=== PATIENT | female | born 1950 | race Caucasian/White ===

== ENCOUNTER 2020-04-19 06:23 | Observation (INO) ==
--- NOTE | 2020-03-25 15:45 | PAT Medication Instructions ---
Medication Instructions Date of Service March 25, 2020 Home Medications multivitamin 1 tab PO QAM omega-3 fatty acids 1,000 mg capsule 1,000 mg PO QAM Vitamin B6 1 tab PO QAM citalopram 20 mg PO QPM coQ10 (ubiquinol) 200 mg PO QAM meloxicam 15 mg PO DAILY PRN vitamin N20-lekrl acid 1 tab PO QAM ASK your surgeon for instructions meloxicam 15 mg PO DAILY PRN STOP taking 2 weeks before surgery If surgery is within 2 weeks, stop taking as soon as possible. omega-3 fatty acids 1,000 mg capsule 1,000 mg PO QAM coQ10 (ubiquinol) 200 mg PO QAM DO NOT take the morning of surgery multivitamin 1 tab PO QAM Vitamin B6 1 tab PO QAM vitamin H55-cfnlh acid 1 tab PO QAM Take evening before surgery citalopram 20 mg PO QPM NOTHING TO EAT OR DRINK AFTER MIDNIGHT. Other Notes If you have any questions please call us at [phone] or [phone] or [phone] or [phone]
--- NOTE | 2020-03-26 12:00 | Anesthesiology Consultation ---
Date of Service March 26, 2020 Assessment & Plan (1) Encounter for pre-operative examination: COVID Status: As of 03/26 assessment, patient denies travel to endemic area, known exposure/sick contacts, or symptoms of COVID19. Patient instructed that they and their household members must follow strict social distancing guidelines, wear a mask in public and avoid travel for 14 days prior to surgery. Preoperative COVID19 testing to be completed prior to surgery per surgeon's arra [place]. Patient made aware to self-isolate as much as possible between COVID testing and surgery. Patient is very anxious regarding surgery/spinal anesthesia/awareness during surgery. Requesting heavier sedation if possible. PATIENT GOES BY '[facility]' Chart Review Chart Review: Acceptable Risk for Surgery and Patient seen in Pre Admission Testing Teaching & Discussion Instructed NPO after midnight before surgery, except medications with 15 cc of water. Medication instructions provided according to the PAT guidelines. History Surgery Operation Date: 04/19/20 08:50 Proposed Procedures p Right Anterior Total Hip Arthroplasty - Evan Casillas, Height/Weight Height: 5 ft 6 in Weight: 68.9 kg Allergies Allergy/AdvReac Type Severity Reaction Status Date / Time No Known Allergies Allergy Verified 03/19/20 08:05 Medications Home Medications Medication Instructions Recorded Confirmed Last Taken multivitamin 1 tab PO QAM 05/16/19 03/26/20 Unknown omega-3 fatty acids 1,000 mg 1,000 mg PO QAM 05/16/19 03/26/20 Unknown capsule Vitamin B6 1 tab PO QAM 03/19/20 03/19/20 Unknown citalopram 20 mg PO QPM 03/19/20 03/26/20 Unknown coQ10 (ubiquinol) 200 mg PO QAM 03/19/20 03/26/20 Unknown vitamin F46-drtfh acid 1 tab PO QAM 03/19/20 03/26/20 Unknown Wheeled Walker #1 ea 03/26/20 03/26/20 Unknown Past Medical History Medical History Anxiety and depression HX Arthritis Arthritis Exercise / Class Metabolic Activity II 4-5 Yardwork/Stairs/Walk up hill Past Family History Family History Father Lung cancer Mother Arthritis Denies family history of Ovarian cancer Prostate cancer Myocardial infarction Breast cancer Colorectal cancer Past Surgical History Surgical History Deviated septum History of colonoscopy S/P eye surgery S/P wisdom tooth extraction Past Anesthesia History No Hx of Anesthesia Complications and No Family Hx of Anesthesia Complications History of PONV No Hx of PONV and No Hx of Motion Sickness Social History Smoking Status: Never smoker tobacco type: cigarettes Do You Dip or Chew Tobacco: No Hx Alcohol Use: Yes Alcohol type: beer, wine and hard liquor alcohol intake frequency: a few times a week Hx Substance Use: No Review of Systems Pt denies any recent chest pain, shortness of breath, palpitations, cough, fever, URI, or uncontrolled acid reflux. Physical Exam Vital Signs BP: 137/85 P: 83bpm SPO2: 97% RA T: 98.3 F R: 16 ENMT Mouth: + dental restorations (crowns on a few molars); no chipped teeth and no loose teeth Thyromental Distance: > or= 3.5 Finger Breadths Mallampati Class: II Neck normal visual inspection; neck extension not limited Respiratory normal respiratory effort Auscultation: lungs clear to auscultation bilaterally Cardiovascular Rate/Rhythm: regular rate and regular rhythm Heart Sounds: no murmur Extremities: no edema Testing Laboratory Results 03/26/20 12:05 03/26/20 12:05 PT 10.7 Seconds (9.0-12.0) 03/26/20 12:05 INR 1.0 (0.9-1.1) 03/26/20 12:05 APTT 27.1 Seconds (21.0-31.0) 03/26/20 12:05 Blood Type O Positive 03/26/20 12:05 Antibody Screen NEGATIVE 03/26/20 12:05 Electrocardiogram Date: 03/26/20 Findings: + NSR @ (79bpm with sinus arrhythmia) iRBBB. Chest X-Ray Date: 03/26/20 Findings: + NAD
--- NOTE | 2020-03-26 13:01 | XRay Report ---
XR chest Pre-admission PA/Lat HISTORY: 69 years-old Female pat preoperative exam. COMPARISON: None TECHNIQUE: PA and lateral views of the chest FINDINGS: Cardiomediastinal and hilar silhouettes are within normal limits. No pneumothorax, pleural effusion, airspace consolidation or overt pulmonary edema. Degenerative changes of the shoulders and spine. IMPRESSION: No acute process. ACT 112: Negative or not required by law. The above report was generated using voice recognition software. It may contain grammatical, syntax o r spelling errors. Electronically signed by: Cy Anders M.D. 03/26/2020 12:59 PM
[2020-03-26 13:47] LABS: Basophils # (auto) 0.05 K/uL (0-0.2); Basophils % (auto) 0.8 %; Eosinophils # (auto) 0.04 K/uL (0-0.5); Eosinophils % (auto) 0.6 %; Hematocrit (blood only) 41.9 % (37-47); Immature Granulocytes # (auto) 0.01 K/uL (0.00-0.02); Immature Granulocytes % (auto) 0.2 %; Lymphocytes # (auto) 1.51 K/uL (1.2-3.4); Lymphocytes % (auto) 23.6 %; Mean Corpuscular Hemoglobin 29.9 pg (25-34); Mean Corpuscular Hgb Conc 33.4 g/dL (32-36); Mean Corpuscular Volume 89.3 fL (80-100); Mean Platelet Volume 9.7 fL (7.4-10.4); Monocytes # (auto) 0.39 K/uL (0.11-0.59); Monocytes % (auto) 6.1 %; Neutrophils % (auto) 68.7 %; Platelet Count 278 K/uL (130-400); RDW Coefficient of Variation 13.5 % (11.5-14.5); RDW Standard Deviation 44.3 fL (36.4-46.3); Red Blood Count 4.69 M/uL (4.2-5.4)
[2020-03-26 13:54] LABS: BUN Creatinine Ratio 15.7 (10-20); Calcium 8.9 mg/dl (8.5-10.1); Creatinine Clr Calc Pharmacy 72.1 ml/min; Est GFR (African American) 102.7; Est GFR (Non-African American) 88.6; Partial Thromboplastin Time 27.1 Seconds (21.0-31.0); Prothrombin Time 10.7 Seconds (9.0-12.0)
--- NOTE | 2020-03-26 15:46 | Electrocardiogram Report ---
Test Reason : Blood Pressure : / mmHG Vent. Rate : 079 BPM Atrial Rate : 079 BPM P-R Int : 144 ms QRS Dur : 100 ms QT Int : 382 ms P-R-T Axes : 079 -08 073 degrees QTc Int : 438 ms Normal sinus rhythm with sinus arrhythmia Incomplete right bundle branch block Borderline ECG No previous ECGs available Confirmed by Wilmer Craven ([id number]) on 03/26/2020 3:46:37 PM Referred By: Evan Casillas Confirmed By:Wilmer Craven
--- NOTE | 2020-04-18 06:58 | History & Physical Report ---
Date of Service April 18, 2020 Assessment & Plan (1) Degenerative joint disease of right hip: We will proceed with a right anterior total hip arthroplasty. Postoperatively she will be started on aspirin for DVT prophylaxis and kept overnight in the hospital for postoperative medical management. She plans to use energy physical therapy upon discharge. Present on Admission?: Yes History of Present Illness Chief Complaint: Primary osteoarthritis of the right hip Primary Care Provider: Katina Macias MD Shantal is a pleasant 69-year-old female who is been dealing with chronic increasing right hip and groin pain. X-rays and clinical examination have been diagnostic for advanced osteoarthritis of the right hip. After failing conservative treatment, she has elected to proceed with a right anterior total hip arthroplasty. Allergies Allergy/AdvReac Type Severity Reaction Status Date / Time No Known Allergies Allergy Verified 03/19/20 08:05 Home Medications Home Medications Medication Instructions Recorded Confirmed Type multivitamin 1 tab PO QAM 05/16/19 03/26/20 History omega-3 fatty acids 1,000 mg 1,000 mg PO QAM 05/16/19 03/26/20 History capsule Vitamin B6 1 tab PO QAM 03/19/20 03/19/20 History coQ10 (ubiquinol) 200 mg PO QAM 03/19/20 03/26/20 History vitamin W78-jfuhb acid 1 tab PO QAM 03/19/20 03/26/20 History Wheeled Walker #1 ea 03/26/20 03/26/20 Rx citalopram 20 mg tablet 20 mg PO DAILY #30 tab 04/02/20 Rx Past Med/Surg History Medical History Anxiety and depression HX Arthritis Arthritis Surgical History Deviated septum History of colonoscopy S/P eye surgery S/P wisdom tooth extraction Family History Father Lung cancer Mother Arthritis Denies family history of Ovarian cancer Prostate cancer Myocardial infarction Breast cancer Colorectal cancer Social History Smoking Status: Never smoker Age Started Using Tobacco: 20; Age Quit Using Tobacco: 21; Second Hand Exposure: Yes (FATHER SMOKED); Hx Alcohol Use: Yes Alcohol type: beer, wine and hard liquor Hx Substance Use: No Preferred Language: Chadian Communication Ability: Effective Visual Impairment: No Limitations Hearing Ability: Normal Video Editing Internship Required: No Beliefs That Will Affect Care: None marital status: Current Living Situation: Spouse current occupational status: retired Feels Safe at Home: Yes Childhood Exposure to Second-Hand Smoke: Yes Dental Care, Regularly: Yes Physical Activity Frequency: Daily Seatbelt Use: always Sunscreen Use: Yes Review of Systems Review of Systems: All systems reviewed & are unremarkable except as noted in HPI & below Physical Exam Constitutional: WD/WN, vitals as above Eyes: PERRL, conjunctivae normal, anicteric sclerae ENMT: external ear and nose normal, oropharynx normal Neck: trachea midline, no thyromegaly Respiratory: normal respiratory effort Cardiovascular: RRR, no murmur, no edema Gastrointestinal (Abdomen): normal bowel sounds, soft, nontender, no hepatosplenomegaly Musculoskeletal: Physical examination of the right hip reveals decreased range of motion with flexion, internal and external rotation. There is significant groin pain with forced internal rotation of the hip his leg lengths are essentially equal. Psychiatric: A+Ox3, euthymic affect Results & Data Results & Data ([facility]) Diagnostic Findings Radiographs of the right hip and pelvis demonstrate advanced osteoarthritis with joint space narrowing osteophyte formation and muhs-fo-lhex articulation. PG Care Time/CCT Total # of Minutes Spent Total Time Spent with Patient: Total time spent is greater than 50% in coordination of care (as documented) at patient's floor/unit and/or counseling patient: Coding Level of Care Code 58189 OBS Care - Level 2 Diagnoses Degenerative joint disease of right hip M16.11
[2020-04-18 08:10] LABS: SARS CoV2 RNA (COVID-19) NOT DETECTED (NOT DETECTED)
[~2020-04-19 06:23] MED LIST: ACETAMINOPHEN 500 MG TAB PO SCH; CEFAZOLIN 1000MG 1,000 MG/7.5 ML SYR IV SCH; FAMOTIDINE 20 MG TAB PO SCH; GABAPENTIN 300 MG CAP PO SCH; LR 500ML BOLUS, THEN 15ML/HR IV SCH; LR 60ML/HR IV SCH; ROPIVACAINE 0.5% HCL/PF 150 MG, BUPIVACAINE 0.5% MPF 30 ML, EPINEPHrine 30MG/30ML (OR U... INSTIL SCH; TRANEXAMIC ACID 1,000 MG **IV Intra-op IV SCH; TRANEXAMIC ACID 1,000 MG **IV Pre-op IV SCH; dexAMETHasone 4 MG TAB PO SCH
[2020-04-19] MEDS ORDERED: BUPIVACAINE 0.5 % 5 MG/1 ML PF 10ML VIAL ONE (06:25)
--- NOTE | 2020-04-19 06:32 | History & Physical Bridge Note ---
Date of Service April 19, 2020 History & Physical Bridge Note I have examined the patient, reviewed the History & Physical and in the interval since the performance of the History & Physical I have noted the following changes of clinical significance: no changes noted
[2020-04-19] MEDS ORDERED: PROPOFOL IV EMULSION 10 MG/ML 20 ML VIAL IV ONE (06:43)
[2020-04-19] MEDS ORDERED: ONDANSETRON INJ 2 MG/ML 2 ML VIAL ONE (06:43)
[2020-04-19] MEDS ORDERED: LIDOCAINE HCL 2% 2 ML VIAL/AMP(20MG/ML) INFIL ONE (06:43)
[2020-04-19] MEDS ORDERED: MIDAZOLAM HCL 1 MG/ML 2ML VIAL ONE (06:43)
[2020-04-19] MEDS ORDERED: fentaNYL citrate 100 MCG/2 ML VIAL ONE (06:44)
[2020-04-19] MEDS ORDERED: ORTHO JOINT ANESTHETIC ONE (07:18)
[2020-04-19] MEDS ORDERED: fentaNYL citrate 100 MCG/2 ML VIAL IV PRN (08:50)
[2020-04-19] MEDS ORDERED: ATROPINE SULFATE 0.1 MG/ML 10ML SYR IV PRN (08:50)
[2020-04-19] MEDS ORDERED: HYDROmorphone INJ 2 MG/ML SYR/VIAL IV PRN (08:50)
[2020-04-19] MEDS ORDERED: ePHEDrine sulfate 50 MG/ML AMP IV PRN (08:50)
--- NOTE | 2020-04-19 09:45 | Operative Report ---
PG Post Operative Report Pre & Post Diagnosis Operation Date: 04/19/20 08:30 Pre-Op Diagnosis: Right Hip Degenerative Joint Disease Post-Op Diagnosis: Right Hip Degenerative Joint Disease I identified the patient and participated in the time-out.: Yes Procedure Operation Date: 04/19/20 08:30 Actual Procedures p Right Anterior Total Hip Arthroplasty(Right) - Evan Casillas DO Surgeon Evan Casillas DO [employer] Evan Angulo PAC Estimated Blood Loss 250 Findings Consistent with Post-Op Diagnosis Specimens Right femoral head Complications none Disposition Disposition: Recovery Room Indications 1-year-old female who presented my office with complaints of chronic increasing right hip and groin pain. X-rays and clinical examination were diagnostic for advanced osteoarthritis of the right hip. After failing conservative treatment, she elected proceed with a right anterior total hip arthroplasty. Description of Procedure Implants used I used a Biomet Taperloc total hip arthroplasty system with a size 9 standard offset Taperloc stem, a 54 mm G7 cup with a 25mm screw, an E1 polyethylene liner, a 40 mm ceramic head with a +3 neck. Shantal arrived at the hospital for the above procedure. She was seen in the preoperative holding area and the operative extremity was identified and signed. She was given a spinal anesthetic, a preoperative antibiotic, and TXA. She was then taken back to the operating room and laid on the table in the supine position. She was given basic sedation. The operative leg was secured to a Puristst leg positioner. The hip was then prepped and draped in sterile fashion. A timeout was done and the patient and the operative extremity was properly identified. An anterior approach was used. Dissection was taken down through the fascia and the tensor muscle belly was retracted laterally and the rectus was retracted medially. The circumflex vessels were identified and ligated. The capsule was then incised and tagged for later repair. The femoral neck was then cut and the femoral head was removed. The acetabulum was exposed. Time was spent doing a complete circumferential labral release. Sequential reaming of the acetabulum up to a size 53 reamer was done. Final reamings were done under fluoroscopy to ensure appropriate version. A Biomet 54 mm G7 cup was then impacted into place. A single 25 mm screw was placed. The E1 polyethylene liner was then snapped into place. Surrounding soft tissues were then injected with 100 cc of an orthopedic pain control cocktail. The proximal femur was then exposed. Sequential broaching up to a size 9 broach was done. Off that broach a size 40 head with a +3 neck was trialed. The hip was reduced and fluoroscopic images showed anatomic alignment of the implants in acceptable length. The broach was removed. The final size 9 standard offset Taperloc stem was then impacted into place. A ceramic 40 mm head with a +3 neck was then impacted onto the stem and the hip was reduced. Final fluoroscopic images showed anatomic alignment of the hip. The capsule was then closed with #1 Vicryl suture. A dilute betadyne lavage was then done for 3 minutes. The joint was then irrigated with normal saline solution. The fascia was closed with #1 PDS suture. Skin was closed with 2-0 Vicryl, laureen, and a Silverlon dressing. She was then transferred to a hospital bed and taken to the post anesthesia care unit in stable condition. She tolerated the procedure well. Evan Angulo PA-C, was present for the entire procedure. He was critical for patient positioning, prepping, draping, retraction exposure, wound closure and application of sterile dressing. I attest to the content of the Intraoperative Record and any orders documented therein. Any exceptions are noted below.
--- NOTE | 2020-04-19 09:49 | Fluoroscopy Report ---
FL hip RT 1V CLINICAL HISTORY: RT ANTERIOR TOTAL COMPARISON STUDY: None. FLUOROSCOPY TIME: 25 seconds. FINDINGS: 2 fluoroscopic spot images of the right hip demonstrate a right total hip arthroplasty. The hardware is intact. No fracture or dislocation. IMPRESSION: Fluoroscopy provided for right total hip arthroplasty. ACT 112: Negative or not required by law. Electronically signed by: Gilson Braswell M.D. 04/19/2020 9:48 AM
--- NOTE | 2020-04-19 10:32 | XRay Report ---
AP PELVIS, CROSSTABLE LATERAL RIGHT HIP History: Right total hip arthroplasty. Degenerative arthritis. Postop. FINDINGS: The patient is status post a right total hip arthroplasty. The hardware is intact. No fract ure or dislocation. Skin laureen are in place. A Y shaped radiopaque implant is again noted overlying the lower pelvis/bladder. This remains unchanged. IMPRESSION: Right total hip arthroplasty. No evidence for hardware complication ACT 112: Negative or not required by law. Electronically signed by: Gilson Braswell M.D. 04/19/2020 10:30 AM
[2020-04-19] MEDS ORDERED: HYDROmorphone INJ 0.5 MG/0.5 ML SYR IV PRN (10:50)
[2020-04-19] MEDS ORDERED: ONDANSETRON INJ 2 MG/ML 2 ML VIAL IV PRN (10:50)
[2020-04-19] MEDS ORDERED: OXYCODONE HCL IR 5 MG TAB (IMMEDIATE RELEASE) PO PRN (10:50)
[2020-04-19] MEDS ORDERED: bisacodyL 10 MG SUPP PR PRN (10:50)
[2020-04-19] MEDS ORDERED: METOCLOPRAMIDE HCL INJ 5 MG/ML 2 ML VIAL IV PRN (10:50)
[2020-04-19] MEDS ORDERED: MAGNESIUM HYDROXIDE SUSP 30 ML UDC PO PRN (10:50)
[2020-04-19] MEDS ORDERED: NALOXONE HCL 0.4 MG/1 ML VIAL/CARP IV PRN (10:50)
[2020-04-19] MEDS: SODIUM CHLORIDE 0.9% 1000ML 1,000 ML IV SCH ×2 (10:57→20:13)
--- NOTE | 2020-04-19 11:04 | Anesthesiology Progress Note ---
Date of Service April 19, 2020 Anesthesia Post Procedure Vital Signs Vital Signs: Temp Pulse Pulse Resp BP BP Pulse Ox 04/19/20 10:45 36.4 C L 72 16 110/62 100 04/19/20 10:25 36.4 C L 73 14 108/65 95 04/19/20 10:15 72 13 106/59 L 98 04/19/20 10:07 36.1 C L 76 17 82/50 L 92 04/19/20 07:08 36.7 C 87 20 159/73 H 99 Pain Intensity Right Hip: Pain Intensity: 1 Transfer of Care Handoff Completed per policy Notes Mental Status: alert / awake / arousable and participated in evaluation Patient Amnestic to Procedure: Yes Nausea / Vomiting: adequately controlled Pain: adequately controlled Airway Patency, RR, SpO2: stable & adequate BP & HR: stable & adequate Hydration State: stable & adequate Neuraxial Anesthesia: was administered and sensory block is resolving Anesthetic Complications: no major complications apparent
[2020-04-19] MEDS: KETOROLAC TROMETHAMINE 15 MG/ML VIAL IV SCH ×3 (11:53→23:19)
[2020-04-19] MEDS: ACETAMINOPHEN 500 MG TAB PO SCH ×2 (13:26→21:27)
[2020-04-19] MEDS: CEFAZOLIN 2000MG 2,000 MG/15 ML SYR IV SCH ×2 (16:56→23:19)
[2020-04-19] MEDS: ASPIRIN 81 MG ECTAB PO SCH (20:13)
[2020-04-19] MEDS: DOCUSATE SODIUM 100 MG CAP PO SCH (20:13)
[2020-04-19] MEDS ORDERED: SENNA 8.6 MG TAB PO SCH (21:00)
[2020-04-20 06:22] LABS: Basophils # (auto) 0.02 K/uL (0-0.2); Basophils % (auto) 0.3 %; Eosinophils # (auto) 0.01 K/uL (0-0.5); Eosinophils % (auto) 0.1 %; Hematocrit (blood only) 31.6 % (37-47); Hemoglobin 10.4 g/dL (12.0-16.0); Immature Granulocytes # (auto) 0.01 K/uL (0.00-0.02); Immature Granulocytes % (auto) 0.1 %; Lymphocytes # (auto) 0.95 K/uL (1.2-3.4); Lymphocytes % (auto) 12.3 %; Mean Corpuscular Hemoglobin 29.5 pg (25-34); Mean Corpuscular Hgb Conc 32.9 g/dL (32-36); Mean Corpuscular Volume 89.5 fL (80-100); Mean Platelet Volume 9.6 fL (7.4-10.4); Monocytes # (auto) 0.62 K/uL (0.11-0.59); Neutrophils # (auto) 6.13 K/uL (1.4-6.5); Neutrophils % (auto) 79.2 %; Platelet Count 203 K/uL (130-400); RDW Coefficient of Variation 13.9 % (11.5-14.5); Red Blood Count 3.53 M/uL (4.2-5.4); White Blood Count 7.74 K/uL (4.8-10.8)
[2020-04-20] MEDS: ACETAMINOPHEN 500 MG TAB PO SCH (06:36)
[2020-04-20] MEDS: KETOROLAC TROMETHAMINE 15 MG/ML VIAL IV SCH ×2 (06:36→11:26)
[2020-04-20 06:57] LABS: BUN Creatinine Ratio 15.1 (10-20); Calcium 8.5 mg/dl (8.5-10.1); Creatinine Clr Calc Pharmacy 74.2 ml/min; Est GFR (African American) 103.7; Est GFR (Non-African American) 89.5; Potassium 4.1 mmol/L (3.5-5.1)
--- NOTE | 2020-04-20 07:39 | Orthopedic Progress Note ---
Date of Service April 20, 2020 Assessment & Plan (1) Status post right hip replacement: Overall she is doing well. She will be seen by physical therapy this morning for ambulation and range of motion exercises. She is on aspirin for DVT prophylaxis. We will discharge her to home later today. She can follow-up with orthopedics in 2 weeks. Present on Admission?: Yes Admission and Anticipated Discharge Date Admission Date: April 19, 2020 Pelon Murguia was seen and examined at bedside this morning. Overall she is doing very well. She is not having much pain in the right hip. She has already been ambulating around the nurses station several times. She has no complaints. Physical Exam Musculoskeletal: On physical examination of the right hip, the dressing is clean and dry. Her legs out in full extension. She has active dorsiflexion and plantarflexion of her right ankle. Results & Data ([facility]) Vital Signs (Past 12 Hours) Vital Signs Temp Pulse Pulse Resp BP BP Pulse Ox 04/20/20 07:22 36.9 C 70 16 106/64 98 04/20/20 02:18 36.6 C 66 16 121/67 97 04/19/20 23:18 36.8 C 70 18 106/55 L 97 04/19/20 21:05 37.0 C 69 17 119/67 97 Laboratory Results H & H 03/26/20 04/20/20 Range/Units 12:05 05:47 Hgb 14.0 10.4 L (12.0-16.0) g/dL Hct 41.9 31.6 L (37-47) % Coagulation 03/26/20 Range/Units 12:05 INR 1.0 (0.9-1.1) Diagnostic Findings Postoperative x-rays of the right hip show the prosthesis to be in anatomic alignment without any evidence of fracture, dislocation, or loosening. PG Care Time/CCT Total # of Minutes Spent Total Time Spent with Patient: Total time spent is greater than 50% in coordination of care (as documented) at patient's floor/unit and/or counseling patient: Coding Level of Care Code None Diagnoses Status post right hip replacement Z96.641
--- NOTE | 2020-04-20 07:40 | Discharge Summary ---
Date of Service April 20, 2020 Admission HPI Per Admitting Provider Shantal is a pleasant 69-year-old female who is been dealing with chronic increasing right hip and groin pain. X-rays and clinical examination have been diagnostic for advanced osteoarthritis of the right hip. After failing conservative treatment, she has elected to proceed with a right anterior total hip arthroplasty. Principal Diagnosis Right hip replacement Discharge Data Allergies Allergy/AdvReac Type Severity Reaction Status Date / Time No Known Allergies Allergy Verified 04/19/20 07:01 Consultations 04/20/20 08:00 Consult Case Management - Discharge Planning Routine Procedures Performed Operation Date: 04/19/20 08:30 Actual Procedures p Right Anterior Total Hip Arthroplasty(Right) - Evan Casillas DO Ordered Studies 04/19/20 08:30 FL fluoroscopy <1hr Routine FL hip RT 1V Routine Hospital Course (1) Status post right hip replacement: On April 19, 2020 Shantal arrived at [facility] and underwent a right hip replacement without complication. She had a spinal anesthetic. Postoperatively she was started on aspirin for DVT prophylaxis and transferred to the general orthopedic floors. Her hospital course was uneventful. On postop day #1 her H&H was stable and her pain was well controlled. She was able to participate well with physical therapy doing ambulation and range of motion exercises. She was then discharged home. She will follow-up with orthopedics in 2 weeks. Total Time Total Time Spent Total Time Spent (In Minutes): 20 Discharge Plan Discharge Items Patient Disposition: Home - Home Health Services Reason For Visit: Right Hip Degenerative Joint Disease Discharge Diagnosis: Right hip replacement Activity: As commented below Non-emergency contact: Surgeon Call non-emergency contact if: your wound has increased redness and your wound has increased drainage Follow-up/Referrals: Katina Macias MD [Primary Care Provider] - Diet: Regular Addtl Attending Provider Instructions: Activity and Therapy Recommendations: * If you are using [facility] then therapy will be provided at your home until they feel you have accomplished all of your goals. * If you are using [facility] then Physical Therapy will be provided until they feel you are ready to start Outpatient Physical Therapy. * If you are not using home therapy then Outpatient Physical Therapy should start about 3-5 days from your day of surgery. Therapy will last about 6-10 weeks * You were shown a series of exercises in the hospital. Do these exercises three times each day including the exercises you were shown in physical therapy. * Get up and walk several times each day.~ For the first four weeks, try not to stand or walk for more than one hour at a time. If you do stand or walk for more than one hour, you will not hurt anything, but your leg will likely swell.~~ * As you feel comfortable, you may change from the walker or crutches to a cane and~then to independent walking. Medications: * Narcotic You will likely be sent home from the hospital with a prescription for the narcotic pain medication that worked best throughout your stay. * Aspirin Most patients will be required to take Aspirin 81mg twice a day for 6 weeks after surgery. This is obtained [id number] and a prescription is not necessary. * Other medications may be prescribed for specific circumstances. If you have any questions, please call the office at . * Resume previous home medications unless otherwise instructed TEDs/Elastic Stockings: The white elastic stockings help limit swelling and prevent blood clots from forming in your legs. The more you wear them, the more they work. Wear them for six weeks. Dressing Care: Leave the Silverlon dressing in place for 7 days. After 7 days you may remove the dressing. If the incision is not draining then you may leave the laureen open to air. If there is a little bit of drainage or if the laureen are getting stuck on your clothing then cover the incision with a dry dressing. The laureen will be removed at your 2 week follow-up appointment. Showering: You may shower with the Silverlon dressing in place. Do not let the shower spray hit the dressing directly. Pat the Silverlon dressing dry. If the dressing becomes wet underneath, then simply remove the dressing. Keep the incision dry until you are 7 days out from the day of surgery. After 7 days you may remove the Silverlon dressing and shower with the laureen exposed. Let soapy water run over the laureen and pat them dry. Do not scrub or soak the incision. Things To Watch For: * Drainage from the incision site that occurs more than one week after your surgery. * Increased redness at the incision site. * Fever above 102 degrees Fahrenheit. * Unusual chest pain or shortness of breath. * Call [facility] at with any of the above problems Follow-Up Visit: Follow-up with Dr. Casillas's PA (Evan Angulo) 2-3 weeks after your day of surgery. He will remove your laureen and answer any questions. If you have any additional questions or concerns, Dr Casillas is usually in the office at the same time and will be available An appointment was probably scheduled when you signed-up for surgery in the office. If you have any questions call Office Instructions: More detailed instructions as well as Frequently Asked Questions were provided in a folder by our office when you signed-up for surgery. Please review these instructions when you get home. If you have any further questions or concerns, please feel free to call the office at [phone] Pending Studies at Discharge: No Stand-Alone Forms: My [facility] cdream network, Smoking Cessation Medications and DC Order Prescriptions: New oxycodone 5 mg Tablet 5 mg PO Q4H PRN (Reason: pain) Qty: 30 RF: 0 aspirin 81 mg Tablet,Delayed Release (Dr/Ec) 81 mg PO BID 42 Days Qty: 0 RF: 0 Continued multivitamin [Daily Multi-Vitamin] tablet 1 tab PO QAM RF: 0 omega-3 fatty acids [Fish Oil Concentrate] 1,000 mg capsule 1,000 mg PO QAM RF: 0 (DME) Wheeled Walker Misc See Rx Instructions .MEDSUPPLY Qty: 1 RF: 0 coQ10 (ubiquinol) 200 mg Capsule 200 mg PO QAM RF: 0 vitamin F90-ajarv acid 500-400 mcg Tablet 1 tab PO QAM RF: 0 Vitamin B6 1 tab PO QAM RF: 0 citalopram [Celexa] 20 mg tablet 20 mg PO DAILY RF: 0 Discharge Orders: Discharge Order (Routine); Ordered 04/20/20 Ordered By: Evan Casillas Admission Data Admit Date/Time: 04/19/20 10:07 Attending Provider: Evan Casillas Admit Provider: Evan Casillas Primary Care Provider: Katina Macias Coding Level of Care Code D/C Day Management <30 mins Diagnoses Status post right hip replacement Z96.641
[2020-04-20] MEDS ORDERED: dexAMETHasone 4 MG TAB PO SCH (08:00)
--- NOTE | 2020-04-20 08:15 | Anesthesiology Progress Note ---
Date of Service April 20, 2020 Anesthesia Post Procedure Vital Signs Vital Signs: Temp Pulse Pulse Pulse Resp BP BP 04/20/20 07:22 36.9 C 70 16 106/64 04/20/20 02:18 36.6 C 66 16 121/67 04/19/20 23:18 36.8 C 70 18 106/55 L 04/19/20 21:05 37.0 C 69 17 119/67 04/19/20 15:39 36.7 C 80 16 120/70 04/19/20 13:26 79 16 112/70 04/19/20 11:59 69 16 115/66 04/19/20 10:45 36.4 C L 72 16 110/62 04/19/20 10:25 36.4 C L 73 14 108/65 04/19/20 10:15 72 13 106/59 L 04/19/20 10:07 36.1 C L 76 17 82/50 L Pulse Ox 04/20/20 07:22 98 04/20/20 02:18 97 04/19/20 23:18 97 04/19/20 21:05 97 04/19/20 15:39 94 04/19/20 13:26 98 04/19/20 11:59 98 04/19/20 10:45 100 04/19/20 10:25 95 04/19/20 10:15 98 04/19/20 10:07 92 Pain Intensity Right Hip: Pain Intensity: 0 Notes Mental Status: alert / awake / arousable and participated in evaluation Nausea / Vomiting: adequately controlled Pain: adequately controlled Airway Patency, RR, SpO2: stable & adequate BP & HR: stable & adequate Hydration State: stable & adequate Neuraxial Anesthesia: was administered and sensory block resolved Anesthetic Complications: no major complications apparent and Pt Satisfied with anesthetic care
[2020-04-20] MEDS ORDERED: CITALOPRAM 20 MG TAB PO SCH (09:00)
[2020-04-20] MEDS ORDERED: MULTIVITAMIN TAB PO SCH (09:00)
[2020-04-20] MEDS: ASPIRIN 81 MG ECTAB PO SCH (09:52)
[2020-04-20] MEDS: DOCUSATE SODIUM 100 MG CAP PO SCH (09:52)
== END 2020-04-20 12:06 | disposition home health service (06) ==
LOC: 3E 06:23 → ASU 06:23